=== PATIENT | female | born 1980 | race Caucasian/White ===

== ENCOUNTER 2017-06-16 17:03 | Inpatient (IN) | payer MEDICAID ==
[2014-01-23 03:10] VITALS: BMI 47.5
[2017-06-16] MEDS ORDERED: Lactated Ringer's 1,000 ML IV SCH ×2 (18:15→22:15)
[2017-06-16] MEDS ORDERED: Sodium Citrate/Citric Acid 15 ml Sol PO ONE (19:29)
[2017-06-16] MEDS ORDERED: ceFAZolin IV 2 gm in Dextrose 2 GM/100 ML BAG IVPB ONE (19:29)
[2017-06-16] MEDS ORDERED: cefOXitin IV 2 gm in Dextrose 2 GM/50 ML BAG IVPB ONE (19:33)
[2017-06-16 19:36] LABS: BASO # 0.1 K/uL (0.0-0.2); BASO % 0.6 % (0.0-2.0); EOS # 0.1 K/uL (0.0-0.7); LYMPH # 1.3 K/uL (1.0-4.3); MEAN CELL VOLUME 79.5 fL (81.0-99.0); MEAN CORPUSCULAR HEMOGLOBIN 26.5 pg (27.0-31.0); MEAN CORPUSCULAR HGB CONC 33.4 g/dL (33.0-37.0); MEAN PLATELET VOLUME 8.1 fL (7.2-11.7); MONO # 0.6 K/uL (0.0-0.8); MONO % 5.4 % (0.0-10.0); NRBC % 0.1 % (0.0-2.0); RED CELL DISTRIBUTION WIDTH 15.7 % (11.5-14.5); WHITE BLOOD COUNT 10.4 K/uL (4.8-10.8)
--- NOTE | 2017-06-16 19:40 | OBADHP ---
Datetime: 06/16/2017 18:50 Admit Comment, IP Provider: 36 y/o unknown GA states LMP 09/09/2016 with shalini 06/16/17 with ir regular period and states she felt ctx pain starting last night getting worse this morning since 8am every 3 minutes. pt reports passing mucous plug with blood this morning dneie slof, and reports jagdish l movemnets. Pt reports she knew she ws 2 months ago becuase she felt movements and denies receveing anyUS or care. Pt reports she has chronic HTN and has been on Cozaar x 1 year. pt reports last dose 3 days ago. Pt is poor historian and told nurse that she took a half tab let this morning. Pt reports hx of demise 38 weeks followed by RLTCS 7 years ago. ANte No care, poor historian OB: RLTCS x 2, IUFD 38 weeks 3years ago, and , daughter 39 weeks failure to progress PACKAGER OR PACKER AND WEIGHER: denies hx of abnormla pap (states last pap 2011), fibroids, ovairan sti PMH: Chronic HTN PSH: CxS 2 MEDS: Coazzr 100mg daily, no vitamin A/P uknown ga 2 preivous CxS chris in labor, with category II tracing, remte form deliv navya with chronic htn elevated bp r/o superimposed preccampsia -admi to L+D -npo, ivf -vs q 15 min -admission/preeclmapitc labs -US BPP/EFW -Anesthsia/OR aware -UDS jose raul Stinson M recommend delivery, continue Coozar post deliveyr adn conslting Cardiolgoy jose raul Neonatogloy Dr Fine / Dr Bernardo reports will send team if needed Pelvic Type - PN: Adequate Extremities - PN: Normal Abdomen - PN: Normal Back - PN: Normal Breast - PN: Normal Lungs - PN: Normal Heart - PN: Normal Thyroid - PN: Not Done Neurologic - PN: Normal HEENT - PN: Normal General - PN: Normal Gestation - Est Wks by US: unknown IP Hx Assessment: No Care IP Chief Complaint: Uterine contractions NICHD Variability Prov Fetus A: Minimal - Undetectable to <5bpm NICHD Decel Fetus A IP Provider: Late Dilatation, Provider: 2 Effacement, Provider: 50 Station, Provider: -3 Genitourinary Exam: Normal DTRs - PN: Normal EGA AdmitDate IP: 40.0 IP Admit Plan: Admit to unit; Initiate Section protocol
[2017-06-16 19:46] LABS: CHLORIDE 103 mmol/L (98-107); RBC URINE 17 /hpf (0-3); URINE BACTERIA OCC (<OCC); URINE BILIRUBIN NEGATIVE (NEGATIVE); URINE BLOOD 2+ (NEGATIVE); URINE COLOR Yellow (YELLOW); URINE GLUCOSE (UA) NORMAL (Normal); URINE KETONE TRACE mg/dL (NEGATIVE); URINE LEUKOCYTE ESTERASE NEG Leu/uL (Negative); URINE PROTEIN 2+ mg/dL (NEGATIVE); URINE UROBILINOGEN NORMAL mg/dL (0.2-1.0); WBC URINE 11 /hpf (0-5)
[2017-06-16 19:47] LABS: SODIUM 135 mmol/L (132-148)
[2017-06-16 19:49] LABS: ALB/GLOB RATIO 0.9 (1.0-2.1); ALKALINE PHOSPHATASE 66 U/L (38-126); ALT/SGPT 22 U/L (9-52); AST/SGOT 29 U/L (14-36); BILIRUBIN,TOTAL 1.2 mg/dL (0.2-1.3); BLOOD UREA NITROGEN 10 mg/dL (7-17); CARBON DIOXIDE 19 mmol/L (22-30); GFR AFRICAN-AMERICAN > 60; TOTAL PROTEIN 7.5 g/dL (6.3-8.3)
[2017-06-16 19:50] LABS: CALCIUM 9.5 mg/dl (8.6-10.4); GLUCOSE,RANDOM 74 mg/dL (65-105); URIC ACID 6.1 mg/dL (2.2-7.5)
[2017-06-16] MEDS ORDERED: Morphine 1 mg/ml preservative-free Inj(Duramorph) ONE (19:57)
[2017-06-16] MEDS ORDERED: cefOXitin IV 2 gm in Dextrose 2 GM/50 ML BAG IVPB SCH (20:00)
[2017-06-16] MEDS ORDERED: Oxytocin 20 units in LR 2,000 ML IV ONE (20:12)
--- NOTE | 2017-06-16 21:25 | US ---
EXAM: US After First Trimester, Transabdominal CLINICAL HISTORY: 36 years old, female; Signs and symptoms; Other: No care; ; Additional info: Wheelchair TECHNIQUE: Real-time transabdominal obstetrical ultrasound of the maternal pelvis and a second or third trimester with image documentation. COMPARISON: No priors FINDINGS: Fetus: There is a single living intrauterine gestation in cephalic presentation. There is a heart rate of 130 beats per minute. No Heart rate: Presentation: Placenta: Placenta is fundal Amniotic fluid: Amnionic fluid index measures 12.29 cm. Anatomy: Evaluation of anatomy is limited by maternal body habitus, positioning and skeletal maturation. Fluid is seen in the bladder. There is a three-vessel cord. Cord Doppler demonstrates PS/ED 2.1 BIOMETRICS Gestational age by US: 36 weeks 6 days EFW: 3200 g BPD: 8.63 cm, 34 weeks 6 days HC: 32.46 cm, 36 weeks 5 days AC: 33.96 cm, 37 weeks 6 days FL: 7.43 cm, 38 weeks 0 days IMPRESSION: 32 week 6 day single cephalic fetus, estimated date of delivery 07/08/17 EXAM: US Biophysical Profile Without Non-Stress Testing EXAM DATE/TIME: 06/16/2017 5:26 PM CLINICAL HISTORY: 36 years old, female; Signs and symptoms; Other: No care; ; Additional info: Wheelchair TECHNIQUE: Real-time ultrasound of the maternal pelvis for biophysical profile evaluation with image documentation. COMPARISON: There are no prior studies for comparison. FINDINGS: Biophysical profile: Biophysical profile was performed. Fetus was evaluated for movement, breathing, tone and fluid volume. A score of 2/2 was given for each parameter IMPRESSION: Normal 8/8 biophysical profile
[2017-06-16] MEDS ORDERED: Midazolam 2 MG/2 ML VIAL ONE (22:10)
--- NOTE | 2017-06-16 22:24 | OBDS ---
DELIVERY PERSONNEL Delivery Doctor: Adele Muro MD Victim Witness Administrator: Pam Olmstead RN Anesthesiologist: Adele Yap MD MATERNAL INFORMATION Medications in Delivery: PITOCIN Estimated Blood Loss (ml): 900 Placenta Cultured: Yes Maternal Complications: None Provider Comments: RLTCS, dense adhesions, live male apgars 9, 9 weight of 7lbs 12 ounces. unable to exteriozire uteurs due to posterior adhesions. ped iatrician present for delveyr. ebl 900 ml no complications LABOR SUMMARY EDC: 06/16/2017 00:00 No. Babies in Womb: 1 LABOR INFORMATION Group B Beta Strep: Not Done STAGES OF LABOR Stage 3 hrs: 0 Stage 3 min: 1 BABY A INFORMATION Infant Delivery Date/Time: 06/16/2017 20:55 Method of Delivery: Born in Route : No : N/A Forceps: N/A Vacuum Extraction: N/A Shoulder Dystocia : No SHOULDER DYSTOCIA BABY A Infant Delivery Date/Time: 06/16/2017 20:55 PRESENTATION/POSITION BABY A Presentation: Cephalic Cephalic Presentation: Vertex Vertex Position: Right Occipital Anterior Breech Presentation: N/A PLACENTA INFORMATION BABY A Placenta Delivery Time : 06/16/2017 20:56 Placenta Method of Delivery: Spontaneous Placenta Status: Delivered SCORES BABY A Heart Rate 1 min: >100 bpm Resp Effort 1 min: Good Cry Reflex Irritability 1 min: Cough or Sneeze or Pulls Away Muscle Tone 1 min: Active Motion Color 1 min: Body Alex, Extremities Blue Resuscitation Effort 1 min: Tactile Stimulation SCORE 1 MIN: 9 Heart Rate 5 min: >100 bpm Resp Effort 5 min: Good Cry Reflex Irritability 5 min: Cough or Sneeze or Pulls Away Muscle Tone 5 min: Active Motion Color 5 min: Body Alex, Extremities Blue Resuscitation Effort 5 min: Tactile Stimulation SCORE 5 MIN: 9 INFORMATION BABY A Gestational Age at Delivery: 40.0 Gestational Status: Term Infant Outcome : Liveborn Condition : Stable Sex: Male IDENTIFICATION/MEDS BABY A ID Band Number: [id number] ID Band Location: Left Leg; Left Arm Sensor Applied: Yes Sensor Number: [id number] Sensor Location : Cord Clamp Vitamin K Given : Aquamephyton 1 mg IM; Left Thigh Erythromycin Given: Given Both Eyes WEIGHT/LENGTH BABY A Birthweight (gms): 3515 Infant Weight (lb): 7 Infant Weight (oz): 12 Infant Length Inches: 19.50 Length cms: 49.5 CORD INFORMATION BABY A No. Cord Vessels: 3 Nuchal Cord : N/A ASSESSMENT BABY A Complications: None Physical Findings at Delivery: Within Normal Limits Respirations: Appears Normal [place] Decorator/ALS Called : Yes Care By: dr kelly Transferred To: Nursery
--- NOTE | 2017-06-16 22:30 | PCM.SURG1 ---
Surgeon's Initial Post Op Note - Surgeon's Notes Surgeon: Joyce Muro MD Supply Chain Vice President: Marciano Matthews MD Type of Anesthesia: Spinal Pre-Operative Diagnosis: Previous cesearean section, chris in labor, no care, chronic hypertensive, poor obstetrical history with previous full term iufd Operative Findings: live male apgars 9,9 weight 7lb 12 ounces, pediatrican presnet for delivery. menconium noted, chorioamnioist. Dr Matthews was surigical conference assistant and present for entire case and essential in gaining entry, retractin, expousre, holding bladder blade, gaining entry, deliveryign baby, closing all layers obtaining hemostaiss. Post-Operative Diagnosis: same as above Operation Performed: Repeat Low transverse cesearen section Specimen/Specimens Removed: placenta Estimated Blood Loss: EBL {In ML}: 900 Blood Products Given: N/A Drains Used: No Drains Post-Op Condition: Good Date of Surgery/Procedure: 06/16/17 Time of Surgery/Procedure: 08:00
[2017-06-17 07:42] LABS: HEMATOCRIT 28.3 % (34.0-47.0); MEAN CELL VOLUME 80.3 fL (81.0-99.0); MEAN CORPUSCULAR HEMOGLOBIN 26.4 pg (27.0-31.0); MEAN CORPUSCULAR HGB CONC 32.8 g/dL (33.0-37.0); MEAN PLATELET VOLUME 8.2 fL (7.2-11.7); RED CELL DISTRIBUTION WIDTH 15.4 % (11.5-14.5); WHITE BLOOD COUNT 11.4 K/uL (4.8-10.8)
[2017-06-17 08:00] LABS: CHLORIDE 103 mmol/L (98-107); POTASSIUM 4.1 mmol/L (3.6-5.2); SODIUM 132 mmol/L (132-148)
[2017-06-17 08:03] LABS: BLOOD UREA NITROGEN 9 mg/dL (7-17); CARBON DIOXIDE 21 mmol/L (22-30); GFR AFRICAN-AMERICAN > 60; GLUCOSE,RANDOM 80 mg/dL (65-105)
[2017-06-17 08:04] LABS: CALCIUM 8.7 mg/dl (8.6-10.4)
[2017-06-17] MEDS ORDERED: Measles, Mumps, and Rubella 0.5 ML VIAL SC ONE (08:14)
[2017-06-17] MEDS: Prenatal Multivit/Folic Acid/Iron Tab PO SCH (09:19)
[2017-06-17] MEDS: Simethicone 80 mg Chewtab PO SCH ×4 (09:19→21:54)
--- NOTE | 2017-06-17 10:10 | OP ---
PROCEDURE DATE: 06/16/2017 PREOPERATIVE DIAGNOSES: Previous section, chris in labor, no care, chronic hypertension, and poor obstetrical history with previous full-term intrauterine demise. POSTOPERATIVE DIAGNOSES: Previous section, chris in labor, no care, chronic hypertension, and poor obstetrical history with previous full-term intrauterine demise. PROCEDURE: Repeat low-transverse section. SURGEON: Joyce Muro MD FRONT OFFICE MEDICAL ASSISTANT: Marciano Matthews MD TYPE OF ANESTHESIA: Spinal. OPERATIVE FINDINGS: Live male infant, Apgars 9 and 9, weight of 7 pounds 12 ounces, infantry officer present for delivery, meconium noted, chorioamnionitis. Dr. Matthews was the personal assistant and was present for entire case and essential in gaining entry, retraction, exposure, holding the bladder while getting entry, delivering the baby, closing all layers and obtaining hemostasis. SPECIMEN REMOVED: Placenta. ESTIMATED BLOOD LOSS: 900 mL. BLOOD PRODUCTS: None. COMPLICATIONS: None. The patient is a 36-year-old G3, P2-0-0-1, with absolutely no care, chronic hypertensive, on Cozaar, who presented to labor and delivery complaining of contraction pain that started the night prior, but increasing in intensity and frequency since 8 a.m. this morning, however, did not present to labor and delivery until after 5 p.m. in the afternoon, also with bloody mucus-type discharge. Denies leakage of fluid. Positive movement. The patient reports contractions were increasing in intensity and severity. The patient is poorly compliant and is also a poor historian and initially told me that was taking Cozaar for the past year and then, however, states that stopped taking it for the past 3 days. The patient states that she follows with primary care, but she said that she last saw them 3 months ago. The patient states that she has known for about 2 months that she has been because she felt some movement, however, failed to get care due to personal reasons in her life. No care. OBSTETRIC HISTORY: One 7 years ago at full-term and then repeat section 3 years ago with intrauterine demise at approximately at 38 weeks as per the patient. 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 PAST MEDICAL HISTORY: Chronic hypertensive, she states, for approximately 1 year. PAST SURGICAL HISTORY: section x2. SOCIAL HISTORY: Denies alcohol, tobacco, or drugs. MEDICATIONS: Cozaar 100 mg daily. ALLERGIES: NO KNOWN DRUG ALLERGIES. Upon evaluation, the patient was noted to have 2 previous C-sections, chris in labor, and also with category II tracing remote from delivery. A bedside ultrasound was done, in which the patient was noted to be approximately 36 weeks and 6 days. The patient was counseled on risks, benefits, alternatives, and indications of repeat section, not limited to bleeding, infection, risk of injury to bowel, bladder, or other organs. The patient was also counseled on unknown risks to baby, especially due to no care and also due to use of antihypertensive medication, Cozaar, which is contraindicated in , not limited to renal agenesis. MFM and perinatologist were consulted and recommended to proceed with immediate delivery. Consent was signed and witnessed. DESCRIPTION OF PROCEDURE: The patient was taken to the operating room in the dorsal supine position. The patient was then prepped and draped in usual sterile fashion. A time-out was performed confirming correct patient and correct procedure. The patient was given preoperative prophylactic antibiotic. A Pfannenstiel skin incision was made with the scalpel and carried down to the underlying fascia with the Bovie. The fascia was incised in the midline and the incision was extended laterally with the Bovie. The inferior aspect of the fascial incision was grasped with Allis and Christina clamps and the underlying rectus muscle was dissected off with the Galaviz scissors. Attention was then turned to the superior aspect of the incision, which in a similar fashion was grasped with Allis and Christina clamps and the underlying rectus muscle dissected off bluntly using the Galaviz scissors. The rectus muscles were then carefully bluntly in the midline until a clear space of peritoneum was then noted and entered sharply. Incision was extended laterally and superiorly until there was good visualization. There were omental adhesions noted in addition to fat that were carefully lysed with good hemostasis noted. The lower end of the Wright was then inserted and a portion of the lower uterine segment away from the bladder flap was incised in a transverse fashion and the uterine incision was extended laterally with bandage scissors. Amniotic fluid membranes were then ruptured and there was meconium noted. There was fluid also staining on the umbilical cord and placenta. The surgeon's hand entered the uterine cavity and was tightly nudged into the pelvic cavity and brought up to the uterine incision. The 's head was delivered atraumatically followed by delivery of the shoulders, followed by delivery of the body. The umbilical cord was clamped and cut and the baby was handed off to the waiting infantry officer. The cord blood and cord gases were collected and sent x2. The placenta was then delivered manually and the uterus was unable to be exteriorized due to posterior adhesions. The uterus was then cleared of all clots and debris and the uterine incision was repaired in situ using 0 Vicryl running continuous locking fashion. The second layer of the same suture was used to close the uterus in a running imbricating manner. There was good hemostasis noted at the uterine incision site. The rectus was loosely reapproximated and closed with 2-0 chromic in an interrupted manner. The fascia was reapproximated and closed with 0 Vicryl in a running continuous fashion. The subcutaneous space was closed with 2-0 plain in an interrupted manner and the skin was reapproximated and closed with mini. At the end of the procedure, all needle, sponge, instrument counts were noted to be correct x2. The patient tolerated the procedure well and was transferred to the recovery room in stable condition. Joyce Muro MD [facility]AIRA
--- NOTE | 2017-06-17 10:39 | CP.PCM.CON ---
History of Present Illness - History of Present Illness History of Present Illness: Patint with history of hypertension now with C section who had high blood pressure. Now controlled and without any symptoms. Past Patient History - Past Social History Smoking Status: Never Smoked - PSYCHIATRIC Hx Substance Use: No Meds Allergies/Adverse Reactions: Allergies Allergy/AdvReac Type Severity Reaction Status Date / Time No Known Allergies Allergy Verified 01/23/14 03:10 - Medications Medications: Current Medications Bisacodyl (Dulcolax) 10 mg PO ONCE ONE Stop: 06/17/17 22:16 Docusate Sodium (Colace) 100 mg PO BID [facility] Last Admin: 06/17/17 09:19 Dose: 100 mg Ferrous Sulfate (Feosol) 325 mg PO DAILY [facility] Last Admin: 06/17/17 09:19 Dose: 325 mg Hydralazine HCl (Apresoline) 25 mg PO QID [facility] Lactated Ringer's (Lactated Ringer's) 1,000 mls @ 100 mls/hr IV .Q10H [facility] Oxytocin (Pitocin 20 Units In Lr) 1,000 mls @ 125 mls/hr IV .Q8H [facility] PRN Reason: Protocol Last Admin: 06/16/17 20:56 Dose: 125 mls/hr Ampicillin 2 gm/ Sodium (Chloride) 100 mls @ 50 mls/hr IVPB Q6H [facility] Stop: 06/17/17 18:29 Last Admin: 06/17/17 04:06 Dose: 50 mls/hr Clindamycin Phosphate 900 mg/ (Sodium Chloride) 56 mls @ 100 mls/hr IVPB Q8H [facility] Stop: 06/17/17 15:04 Last Admin: 06/17/17 09:13 Dose: 100 mls/hr Gentamicin Sulfate 80 mg/ (Sodium Chloride) 102 mls @ 100 mls/hr IVPB Q8H [facility] Stop: 06/17/17 18:02 Last Admin: 06/17/17 02:17 Dose: 100 mls/hr Ibuprofen (Motrin Tab) 600 mg PO Q4 PRN PRN Reason: Pain, Mild (1-3) Metoclopramide HCl (Reglan) 10 mg IVP ONCE PRN PRN Reason: Nausea/Vomiting, SECOND LINE Ondansetron HCl (Zofran Inj) 4 mg IVP ONCE PRN PRN Reason: Nausea/Vomiting Oxycodone/Acetaminophen (Percocet 5/325 Mg Tab) 1 tab PO Q4H PRN PRN Reason: Pain, moderate (4-7) Stop: 06/19/17 22:15 Oxycodone/Acetaminophen (Percocet 5/325 Mg Tab) 2 tab PO Q4H PRN PRN Reason: Pain, severe (8-10) Stop: 06/19/17 22:15 Multivit/Folic Acid/Iron () 1 tab PO DAILY [facility] Last Admin: 06/17/17 09:19 Dose: 1 tab Sennosides (Senokot Tab) 17.2 mg PO HS [facility] Simethicone (Mylicon Chew Tab) 80 mg PO QID [facility] Last Admin: 06/17/17 09:19 Dose: 80 mg Physical Exam - Head Exam Head Exam: NORMOCEPHALIC - Neck Exam Neck exam: Positive for: Normal Inspection Results - Vital Signs Recent Vital Signs: Last Vital Signs Temp 97.8 F 06/17/17 07:30 Pulse 75 06/17/17 07:30 Resp 18 06/17/17 07:30 BP 117/70 06/17/17 07:30 Pulse Ox 97 06/17/17 07:30 - Labs Result Diagrams: 06/17/17 07:34 06/17/17 07:34 Labs: Laboratory Results - last 24 hr 06/16/17 06/16/17 06/16/17 19:33 19:33 19:33 WBC 10.4 RBC 3.90 Hgb 10.4 L Hct 31.0 L MCV 79.5 L MCH 26.5 L MCHC 33.4 RDW 15.7 H Plt Count 219 MPV 8.1 Neut % (Auto) 81.0 H Lymph % (Auto) 12.0 L [place] % (Auto) 5.4 Eos % (Auto) 1.0 Baso % (Auto) 0.6 Neut # 8.4 H Lymph # 1.3 [place] # 0.6 Eos # 0.1 Baso # 0.1 PT INR APTT Fibrinogen Sodium 135 Potassium 5.0 Chloride 103 Carbon Dioxide 19 L Anion Gap 18 BUN 10 Creatinine 0.5 L Est GFR ( Amer) > 60 Est GFR (Non-Af Amer) > 60 Random Glucose 74 Uric Acid 6.1 Calcium 9.5 Total Bilirubin 1.2 AST 29 ALT 22 Alkaline Phosphatase 66 Lactate Dehydrogenase 715 H Total Protein 7.5 Albumin 3.6 Globulin 3.9 Albumin/Globulin Ratio 0.9 L Urine Color Urine Clarity Urine pH Ur Specific [place] Urine Protein Urine Glucose (UA) Urine Ketones Urine Blood Urine Nitrate Urine Bilirubin Urine Urobilinogen Ur Leukocyte Esterase Urine WBC (Auto) Urine RBC (Auto) Ur Squamous Epith Cells Urine Bacteria Urine Opiates Screen Urine Methadone Screen Ur Barbiturates Screen Ur Phencyclidine Scrn Ur Amphetamines Screen U Benzodiazepines Scrn U Oth Cocaine Metabols U Cannabinoids Screen Hep Bs Antigen Negative HIV 1&2 Antibody Screen Rubella IgG Antibody Equivocal Blood Type Antibody Screen BBK History Checked 06/16/17 06/16/17 06/16/17 19:33 19:33 19:33 WBC RBC Hgb Hct MCV MCH MCHC RDW Plt Count MPV Neut % (Auto) Lymph % (Auto) [place] % (Auto) Eos % (Auto) Baso % (Auto) Neut # Lymph # [place] # Eos # Baso # PT 10.8 INR 1.0 APTT 24 Fibrinogen 575 H Sodium Potassium Chloride Carbon Dioxide Anion Gap BUN Creatinine Est GFR ( Amer) Est GFR (Non-Af Amer) Random Glucose Uric Acid Calcium Total Bilirubin AST ALT Alkaline Phosphatase Lactate Dehydrogenase Total Protein Albumin Globulin Albumin/Globulin Ratio Urine Color Urine Clarity Urine pH Ur Specific [place] Urine Protein Urine Glucose (UA) Urine Ketones Urine Blood Urine Nitrate Urine Bilirubin Urine Urobilinogen Ur Leukocyte Esterase Urine WBC (Auto) Urine RBC (Auto) Ur Squamous Epith Cells Urine Bacteria Urine Opiates Screen Urine Methadone Screen Ur Barbiturates Screen Ur Phencyclidine Scrn Ur Amphetamines Screen U Benzodiazepines Scrn U Oth Cocaine Metabols U Cannabinoids Screen Hep Bs Antigen HIV 1&2 Antibody Screen Negative Rubella IgG Antibody Blood Type Cancelled Antibody Screen Negative BBK History Checked Cancelled 06/16/17 06/16/17 06/17/17 19:33 19:34 07:34 WBC 11.4 H RBC 3.53 L Hgb 9.3 L Hct 28.3 L MCV 80.3 L MCH 26.4 L MCHC 32.8 L RDW 15.4 H Plt Count 197 MPV 8.2 Neut % (Auto) Lymph % (Auto) [place] % (Auto) Eos % (Auto) Baso % (Auto) Neut # Lymph # [place] # Eos # Baso # PT INR APTT Fibrinogen Sodium Potassium Chloride Carbon Dioxide Anion Gap BUN Creatinine Est GFR ( Amer) Est GFR (Non-Af Amer) Random Glucose Uric Acid Calcium Total Bilirubin AST ALT Alkaline Phosphatase Lactate Dehydrogenase Total Protein Albumin Globulin Albumin/Globulin Ratio Urine Color Yellow Urine Clarity Clear Urine pH 6.0 Ur Specific [place] 1.019 Urine Protein 2+ H Urine Glucose (UA) Normal Urine Ketones Trace Urine Blood 2+ H Urine Nitrate Negative Urine Bilirubin Negative Urine Urobilinogen Normal Ur Leukocyte Esterase Neg Urine WBC (Auto) 11 H Urine RBC (Auto) 17 H Ur Squamous Epith Cells 3 Urine Bacteria Occ H Urine Opiates Screen Negative Urine Methadone Screen Negative Ur Barbiturates Screen Negative Ur Phencyclidine Scrn Negative Ur Amphetamines Screen Negative U Benzodiazepines Scrn Negative U Oth Cocaine Metabols Negative U Cannabinoids Screen Negative Hep Bs Antigen HIV 1&2 Antibody Screen Rubella IgG Antibody Blood Type Antibody Screen BBK History Checked 06/17/17 07:34 WBC RBC Hgb Hct MCV MCH MCHC RDW Plt Count MPV Neut % (Auto) Lymph % (Auto) [place] % (Auto) Eos % (Auto) Baso % (Auto) Neut # Lymph # [place] # Eos # Baso # PT INR APTT Fibrinogen Sodium 132 Potassium 4.1 Chloride 103 Carbon Dioxide 21 L Anion Gap 12 BUN 9 Creatinine 0.4 L Est GFR ( Amer) > 60 Est GFR (Non-Af Amer) > 60 Random Glucose 80 Uric Acid Calcium 8.7 Total Bilirubin AST ALT Alkaline Phosphatase Lactate Dehydrogenase Total Protein Albumin Globulin Albumin/Globulin Ratio Urine Color Urine Clarity Urine pH Ur Specific [place] Urine Protein Urine Glucose (UA) Urine Ketones Urine Blood Urine Nitrate Urine Bilirubin Urine Urobilinogen Ur Leukocyte Esterase Urine WBC (Auto) Urine RBC (Auto) Ur Squamous Epith Cells Urine Bacteria Urine Opiates Screen Urine Methadone Screen Ur Barbiturates Screen Ur Phencyclidine Scrn Ur Amphetamines Screen U Benzodiazepines Scrn U Oth Cocaine Metabols U Cannabinoids Screen Hep Bs Antigen HIV 1&2 Antibody Screen Rubella IgG Antibody Blood Type Antibody Screen BBK History Checked Assessment & Plan (1) Hypertension Assessment and Plan: History of hypertension, now controlled. Control pain. Continue current medicine. Status: Acute
--- NOTE | 2017-06-17 13:50 | CP.PCM.CON ---
<Sun Cabrera Dianna - Last Filed: 06/17/17 14:02> History of Present Illness - History of Present Illness History of Present Illness: PGY1- Medicine Note- Dr. Ahumada's service Patient is a 34 year old female with a PMHx of HTN who is s/p delivery, post-op day 1. Medicine was consulted to evaluate the patient's hypertension. Her blood pressure is currently being managed with losartan 100 mg daily. She does not regularly monitor her blood pressure at home, but notes that she gets headaches when it goes too high. Patient did not receive any care as she was unaware that she was for the first 7 months of her . Her menstrual cycle is irregular at baseline so she was not concerned about missing her periods. Patient continued to take losartan until she realized she was at 7 months and afterwards took 50 mg prn whenever she experienced headaches. Today patient complains of mild cough and congestion for the past 2-3 days as well as orthopnea during her . Post patient is having some sweating and rates her abdominal pain as 6/10. Patient has had no bowel movement or flatulence since her . Patient denies fever, chills, n/v/d/c, dizziness, headaches, changes in vision or speech, confusion, or chest pain. PMHx: HTN; Herniated disk; spinal stenosis; arthritis; asthma PSHx: x 3 FHx: Maternal: HTN, DM, CKD; Paternal: Thyroid; Siblings: most are diabetic SH: Patient denies tobacco, alcohol, or illicit drug use Medications: Cozaar - 100 mg daily; Naproxen - 500 mg HS; Flexeril - 10 mg HS; Percocet 5-325 mg PRN Allergies: NKDA Review of Systems - Constitutional Constitutional: Weakness. absent: Chills, Fever - EENT Eyes: absent: Change in Vision, Diplopia Ears: absent: Decreased Hearing, Abnormal Hearing, Dizziness Nose/Mouth/Throat: Nasal Congestion. absent: Sore Throat - Cardiovascular Cardiovascular: Orthopnea. absent: Chest Pain, Leg Edema, Lightheadedness, Pedal Edema - Respiratory Respiratory: Cough. absent: Hemoptysis, Wheezing, Stridor - Gastrointestinal Gastrointestinal: Abdominal Pain, Constipation - Genitourinary Genitourinary: absent: Change in Urinary Stream, Difficulty Urinating, Dysuria - Menstruation Menstruation: Cycle Variable - Musculoskeletal Musculoskeletal: absent: Muscle Weakness - Integumentary Integumentary: absent: Change in Pigmentation, Changing Lesions, New Lesions, Pruritus, Rash - Neurological Neurological: Weakness. absent: Dizziness, Numbness, Tingling - Hematologic/Lymphatic Hematologic: absent: Easy Bleeding, Easy Bruising Past Patient History - Past Social History Smoking Status: Never Smoked - PSYCHIATRIC Hx Substance Use: No Meds Allergies/Adverse Reactions: Allergies Allergy/AdvReac Type Severity Reaction Status Date / Time No Known Allergies Allergy Verified 01/23/14 03:10 - Medications Medications: Current Medications Bisacodyl (Dulcolax) 10 mg PO ONCE ONE Stop: 06/17/17 22:16 Docusate Sodium (Colace) 100 mg PO BID [facility] Last Admin: 06/17/17 09:19 Dose: 100 mg Ferrous Sulfate (Feosol) 325 mg PO BID [facility] Hydralazine HCl (Apresoline) 25 mg PO QID [facility] Last Admin: 06/17/17 10:30 Dose: Not Given Lactated Ringer's (Lactated Ringer's) 1,000 mls @ 100 mls/hr IV .Q10H [facility] Oxytocin (Pitocin 20 Units In Lr) 1,000 mls @ 125 mls/hr IV .Q8H [facility] PRN Reason: Protocol Last Admin: 06/16/17 20:56 Dose: 125 mls/hr Ampicillin 2 gm/ Sodium (Chloride) 100 mls @ 50 mls/hr IVPB Q6H [facility] Stop: 06/17/17 18:29 Last Admin: 06/17/17 11:25 Dose: 50 mls/hr Clindamycin Phosphate 900 mg/ (Sodium Chloride) 56 mls @ 100 mls/hr IVPB Q8H [facility] Stop: 06/17/17 15:04 Last Admin: 06/17/17 09:13 Dose: 100 mls/hr Gentamicin Sulfate 80 mg/ (Sodium Chloride) 102 mls @ 100 mls/hr IVPB Q8H [facility] Stop: 06/17/17 18:02 Last Admin: 06/17/17 02:17 Dose: 100 mls/hr Ibuprofen (Motrin Tab) 600 mg PO Q4 PRN PRN Reason: Pain, Mild (1-3) Metoclopramide HCl (Reglan) 10 mg IVP ONCE PRN PRN Reason: Nausea/Vomiting, SECOND LINE Ondansetron HCl (Zofran Inj) 4 mg IVP ONCE PRN PRN Reason: Nausea/Vomiting Oxycodone/Acetaminophen (Percocet 5/325 Mg Tab) 1 tab PO Q4H PRN PRN Reason: Pain, moderate (4-7) Stop: 06/19/17 22:15 Oxycodone/Acetaminophen (Percocet 5/325 Mg Tab) 2 tab PO Q4H PRN PRN Reason: Pain, severe (8-10) Stop: 06/19/17 22:15 Multivit/Folic Acid/Iron () 1 tab PO DAILY [facility] Last Admin: 06/17/17 09:19 Dose: 1 tab Sennosides (Senokot Tab) 17.2 mg PO HS YANY Simethicone (Mylicon Chew Tab) 80 mg PO QID [facility] Last Admin: 06/17/17 09:19 Dose: 80 mg Tetanus/Reduced Diphtheria/Acell Pertussis (Adacel) 0.5 ml IM .ONCE ONE Stop: 06/18/17 10:01 Physical Exam - Constitutional Appears: Well, Non-toxic, No Acute Distress - Head Exam Head Exam: ATRAUMATIC, NORMAL INSPECTION, NORMOCEPHALIC - Eye Exam Eye Exam: EOMI, Normal appearance, PERRL - ENT Exam ENT Exam: Mucous Membranes Moist, Normal Exam - Neck Exam Neck exam: Positive for: Normal Inspection - Respiratory Exam Respiratory Exam: Clear to Auscultation Bilateral, NORMAL BREATHING PATTERN. absent: Rales, Rhonchi, Wheezes, Respiratory Distress - Cardiovascular Exam Cardiovascular Exam: REGULAR RHYTHM, RRR. absent: Gallop, Rubs, Systolic Murmur - GI/Abdominal Exam GI & Abdominal Exam: Normal Bowel Sounds, Soft, Tenderness Additional comments: c section incision dry, clean, intact - Extremities Exam Extremities exam: Positive for: normal inspection. Negative for: calf tenderness, pedal edema - Neurological Exam Neurological exam: Alert, Oriented x3 - Psychiatric Exam Psychiatric exam: Normal Affect, Normal Mood - Skin Skin Exam: Dry, Intact, Normal Color Additional comments: c section incision clean, dry, intact Results - Vital Signs Recent Vital Signs: Last Vital Signs Temp 97.8 F 06/17/17 07:30 Pulse 75 06/17/17 07:30 Resp 18 06/17/17 07:30 BP 117/70 06/17/17 07:30 Pulse Ox 97 06/17/17 07:30 - Labs Result Diagrams: 06/17/17 07:34 06/17/17 07:34 Labs: Laboratory Results - last 24 hr 06/16/17 06/16/17 06/16/17 19:33 19:33 19:33 WBC 10.4 RBC 3.90 Hgb 10.4 L Hct 31.0 L MCV 79.5 L MCH 26.5 L MCHC 33.4 RDW 15.7 H Plt Count 219 MPV 8.1 Neut % (Auto) 81.0 H Lymph % (Auto) 12.0 L Vernon % (Auto) 5.4 Eos % (Auto) 1.0 Baso % (Auto) 0.6 Neut # 8.4 H Lymph # 1.3 Vernon # 0.6 Eos # 0.1 Baso # 0.1 PT INR APTT Fibrinogen Sodium 135 Potassium 5.0 Chloride 103 Carbon Dioxide 19 L Anion Gap 18 BUN 10 Creatinine 0.5 L Est GFR ( Amer) > 60 Est GFR (Non-Af Amer) > 60 Random Glucose 74 Uric Acid 6.1 Calcium 9.5 Total Bilirubin 1.2 AST 29 ALT 22 Alkaline Phosphatase 66 Lactate Dehydrogenase 715 H Total Protein 7.5 Albumin 3.6 Globulin 3.9 Albumin/Globulin Ratio 0.9 L Urine Color Urine Clarity Urine pH Ur Specific Zaleski Urine Protein Urine Glucose (UA) Urine Ketones Urine Blood Urine Nitrate Urine Bilirubin Urine Urobilinogen Ur Leukocyte Esterase Urine WBC (Auto) Urine RBC (Auto) Ur Squamous Epith Cells Urine Bacteria Urine Opiates Screen Urine Methadone Screen Ur Barbiturates Screen Ur Phencyclidine Scrn Ur Amphetamines Screen U Benzodiazepines Scrn U Oth Cocaine Metabols U Cannabinoids Screen Hep Bs Antigen Negative HIV 1&2 Antibody Screen Rubella IgG Antibody Equivocal Blood Type Antibody Screen BBK History Checked 06/16/17 06/16/17 06/16/17 19:33 19:33 19:33 WBC RBC Hgb Hct MCV MCH MCHC RDW Plt Count MPV Neut % (Auto) Lymph % (Auto) Vernon % (Auto) Eos % (Auto) Baso % (Auto) Neut # Lymph # Vernon # Eos # Baso # PT 10.8 INR 1.0 APTT 24 Fibrinogen 575 H Sodium Potassium Chloride Carbon Dioxide Anion Gap BUN Creatinine Est GFR ( Amer) Est GFR (Non-Af Amer) Random Glucose Uric Acid Calcium Total Bilirubin AST ALT Alkaline Phosphatase Lactate Dehydrogenase Total Protein Albumin Globulin Albumin/Globulin Ratio Urine Color Urine Clarity Urine pH Ur Specific Zaleski Urine Protein Urine Glucose (UA) Urine Ketones Urine Blood Urine Nitrate Urine Bilirubin Urine Urobilinogen Ur Leukocyte Esterase Urine WBC (Auto) Urine RBC (Auto) Ur Squamous Epith Cells Urine Bacteria Urine Opiates Screen Urine Methadone Screen Ur Barbiturates Screen Ur Phencyclidine Scrn Ur Amphetamines Screen U Benzodiazepines Scrn U Oth Cocaine Metabols U Cannabinoids Screen Hep Bs Antigen HIV 1&2 Antibody Screen Negative Rubella IgG Antibody Blood Type Cancelled Antibody Screen Negative BBK History Checked Cancelled 06/16/17 06/16/17 06/17/17 19:33 19:34 07:34 WBC 11.4 H RBC 3.53 L Hgb 9.3 L Hct 28.3 L MCV 80.3 L MCH 26.4 L MCHC 32.8 L RDW 15.4 H Plt Count 197 MPV 8.2 Neut % (Auto) Lymph % (Auto) Vernon % (Auto) Eos % (Auto) Baso % (Auto) Neut # Lymph # Vernon # Eos # Baso # PT INR APTT Fibrinogen Sodium Potassium Chloride Carbon Dioxide Anion Gap BUN Creatinine Est GFR ( Amer) Est GFR (Non-Af Amer) Random Glucose Uric Acid Calcium Total Bilirubin AST ALT Alkaline Phosphatase Lactate Dehydrogenase Total Protein Albumin Globulin Albumin/Globulin Ratio Urine Color Yellow Urine Clarity Clear Urine pH 6.0 Ur Specific Zaleski 1.019 Urine Protein 2+ H Urine Glucose (UA) Normal Urine Ketones Trace Urine Blood 2+ H Urine Nitrate Negative Urine Bilirubin Negative Urine Urobilinogen Normal Ur Leukocyte Esterase Neg Urine WBC (Auto) 11 H Urine RBC (Auto) 17 H Ur Squamous Epith Cells 3 Urine Bacteria Occ H Urine Opiates Screen Negative Urine Methadone Screen Negative Ur Barbiturates Screen Negative Ur Phencyclidine Scrn Negative Ur Amphetamines Screen Negative U Benzodiazepines Scrn Negative U Oth Cocaine Metabols Negative U Cannabinoids Screen Negative Hep Bs Antigen HIV 1&2 Antibody Screen Rubella IgG Antibody Blood Type Antibody Screen BBK History Checked 06/17/17 06/17/17 07:34 10:45 WBC RBC Hgb Hct MCV MCH MCHC RDW Plt Count MPV Neut % (Auto) Lymph % (Auto) Vernon % (Auto) Eos % (Auto) Baso % (Auto) Neut # Lymph # Vernon # Eos # Baso # PT INR APTT Fibrinogen Sodium 132 Potassium 4.1 Chloride 103 Carbon Dioxide 21 L Anion Gap 12 BUN 9 Creatinine 0.4 L Est GFR ( Amer) > 60 Est GFR (Non-Af Amer) > 60 Random Glucose 80 Uric Acid Calcium 8.7 Total Bilirubin AST ALT Alkaline Phosphatase Lactate Dehydrogenase Total Protein Albumin Globulin Albumin/Globulin Ratio Urine Color Urine Clarity Urine pH Ur Specific Zaleski Urine Protein Urine Glucose (UA) Urine Ketones Urine Blood Urine Nitrate Urine Bilirubin Urine Urobilinogen Ur Leukocyte Esterase Urine WBC (Auto) Urine RBC (Auto) Ur Squamous Epith Cells Urine Bacteria Urine Opiates Screen Urine Methadone Screen Ur Barbiturates Screen Ur Phencyclidine Scrn Ur Amphetamines Screen U Benzodiazepines Scrn U Oth Cocaine Metabols U Cannabinoids Screen Hep Bs Antigen HIV 1&2 Antibody Screen Rubella IgG Antibody Blood Type A NEGATIVE Antibody Screen Negative BBK History Checked Assessment & Plan - Assessment and Plan (Free Text) Assessment: Hypertension Cozaar stopped Hydralazine 25 mg PO QID, hold SBP<100, hold if HR<60 Monitor blood pressure s/p 06/16 management as per OBGYN <Constance Ahumada V - Last Filed: 06/17/17 22:54> Meds - Medications Medications: Current Medications Docusate Sodium (Colace) 100 mg PO BID [facility] Last Admin: 06/17/17 18:26 Dose: 100 mg Ferrous Sulfate (Feosol) 325 mg PO BID [facility] Last Admin: 06/17/17 18:27 Dose: 325 mg Hydralazine HCl (Apresoline) 25 mg PO QID [facility] Last Admin: 06/17/17 21:54 Dose: 25 mg Lactated Ringer's (Lactated Ringer's) 1,000 mls @ 100 mls/hr IV .Q10H [facility] Oxytocin (Pitocin 20 Units In Lr) 1,000 mls @ 125 mls/hr IV .Q8H [facility] PRN Reason: Protocol Last Admin: 06/16/17 20:56 Dose: 125 mls/hr Ibuprofen (Motrin Tab) 600 mg PO Q4 PRN PRN Reason: Pain, Mild (1-3) Metoclopramide HCl (Reglan) 10 mg IVP ONCE PRN PRN Reason: Nausea/Vomiting, SECOND LINE Ondansetron HCl (Zofran Inj) 4 mg IVP ONCE PRN PRN Reason: Nausea/Vomiting Oxycodone/Acetaminophen (Percocet 5/325 Mg Tab) 1 tab PO Q4H PRN PRN Reason: Pain, moderate (4-7) Stop: 06/19/17 22:15 Last Admin: 06/17/17 21:56 Dose: 1 tab Oxycodone/Acetaminophen (Percocet 5/325 Mg Tab) 2 tab PO Q4H PRN PRN Reason: Pain, severe (8-10) Stop: 06/19/17 22:15 Multivit/Folic Acid/Iron () 1 tab PO DAILY [facility] Last Admin: 06/17/17 09:19 Dose: 1 tab Sennosides (Senokot Tab) 17.2 mg PO HS [facility] Last Admin: 06/17/17 21:53 Dose: 17.2 mg Simethicone (Mylicon Chew Tab) 80 mg PO QID [facility] Last Admin: 06/17/17 21:54 Dose: 80 mg Tetanus/Reduced Diphtheria/Acell Pertussis (Adacel) 0.5 ml IM .ONCE ONE Stop: 06/18/17 10:01 Results - Vital Signs Recent Vital Signs: Last Vital Signs Temp 97.9 F 06/17/17 15:30 Pulse 83 06/17/17 18:35 Resp 20 06/17/17 18:30 BP 134/75 06/17/17 18:30 Pulse Ox 98 06/17/17 18:30 - Labs Result Diagrams: 06/17/17 07:34 06/17/17 07:34 Labs: Laboratory Results - last 24 hr 06/17/17 06/17/17 06/17/17 07:34 07:34 10:45 WBC 11.4 H RBC 3.53 L Hgb 9.3 L Hct 28.3 L MCV 80.3 L MCH 26.4 L MCHC 32.8 L RDW 15.4 H Plt Count 197 MPV 8.2 Sodium 132 Potassium 4.1 Chloride 103 Carbon Dioxide 21 L Anion Gap 12 BUN 9 Creatinine 0.4 L Est GFR ( Amer) > 60 Est GFR (Non-Af Amer) > 60 Random Glucose 80 Calcium 8.7 Blood Type A NEGATIVE Antibody Screen Negative Attending/Attestation - Attestation I have personally seen and examined this patient.: Yes I have fully participated in the care of the patient.: Yes I have reviewed all pertinent clinical information: Yes Notes (Text): Patient seen, examined, and case discussed with day-time resident. Medicine was consulted for blood pressure management with patient with history of chronic hypertension; s/p , who did not receive care during time of . Patient reports she visited PMD about 8 months ago and her Cozaar dose was increased. Patient reports two year history of blood pressure and family hx of hypertension. Patient discovered two months ago she was , decided to stop Cozaar on her own, and only take which felt her blood pressure was high, and did not informed of PMD at the time of nor seek [facility] [employer]OR care. Patient advised at bedside to stop Cozaar given she has plans to breastfed. I advised the patient that Cozaar may have adverse side effects given she was taking this medication during unplanned and further side effects considering she is planning to breast fed. Information verified with Aid via [facility]. Discussed with Dr. Benítez following my visit with the patient this morning; discontinued Cozaar and started on Hydralazine 25mg PO QID with holding parameters Assessment/Plan 1) Chronic Hypertension * Cozaar stopped given side effect profile during ; Patient is status post delivery with plans for and advised to stop medication if she is planning to breast fed given adverse implications to the ; patient agreeable to this plan * Hydralazine 25 mg PO QID, hold SBP<100, hold if HR<60 * Monitor blood pressure 2) s/p 06/16 * management as per OBGYN
[2017-06-17] MEDS: Oxycodone/Acetaminophen 5/325 mg Tab PO PRN ×2 (17:33→21:56)
[2017-06-17 18:40] VITALS: O2SAT 98
--- NOTE | 2017-06-17 21:29 | OBPPN ---
Datetime: 06/17/2017 15:05 PP Pain Prov: Within normal limits PP Nausea Prov: Denies PP Flatus Prov: No PP BM Prov: No PP Breasts Prov: Normal PP Heart Prov: Normal PP Lungs Prov: Normal PP Abdomen/Uterus Prov: Normal PP Lochia Prov: Normal PP Vulva/Perineum Prov: Not Done PP CVA Tenderness Prov: Normal PP Extremities Prov: Normal PP C/S Incision Prov: Normal PP Progress Prov: Normal PP Comments Phys Exam Prov: Abdomen: (+)ABS. Obese. Soft. Non distended. Fundus firm, mobile, approp riately and mildly tender. Incision with mini - clean, dry and itact. Moderate lochia rubra. Extremities: bilatral lower extremity edema; no calf tenderness All other systems reviewed and are negative PP Progress Note Prov: Patient initially seen and evaluated approximately 1300 hours: received in ch air; FOB and others in the room - asked to leave. Motivated to breastfeed. Was nauseous earlier this morning; not so at time of evaluatoin. Not yet voided after Chávez removed. Pain scale 6/10 - relie venice with pain meds. P.E.: as above. Obese, in NAD. Awake, alert, oriented to time, person and place. Pleasant and co operative - POD#1 H/H 9.3/28.3. Rh(-) - receiveing Rhogam Assessment: POD#1 36 y.o. P3012, S/P C/S #3 at term; no care. Chronic HTN was on cozaar. Patient has been evaluated by Medicine for management of HTN - Thank you Dr. Ahumada. Also seen by C ardiologist; S/P ECHO - results pending. Anemia noted - asymptomatic; hemodynamically stable. Clini manan stable. Plan: 1) continue present post op management 2) Encourage ambulation in hallway 3) Change iron to BID 4) continue hydralzaine 25 mg p.o. QID Approximately 1715 hours, notified by R.N - patient c/o cough and wheezing - Patient received in bed in NAD. Talking witout difficulty. Reports H/O asthma, 2009 - never hos pitalized or intubated. Not on any meds. Patient stated has voided twice since last encounter. Lungs: CTA bilaterally; no wheezes auscultated - pulmonary toilette performed. Patient coughed a little and felt better Assessment: Post op cough - probable, mild atelectasis. Afebrile, VSS. Plan: 1) Encourage incentive spirometer q hour 2) Encourage ambulating 3) Continue post op care 4) F/U Cardiology and Medicine consults 5) Robitussin 10 mL p.o. Q4H, PRN Vital Signs Provider PP: Reviewed
[2017-06-17] MEDS ORDERED: Bisacodyl 5mg EC Tab PO ONE (22:15)
[2017-06-18] MEDS: Oxycodone/Acetaminophen 5/325 mg Tab PO PRN ×2 (03:20→23:38)
--- NOTE | 2017-06-18 09:17 | CP.PCM.PN ---
<Mami Byrnes - Last Filed: 06/18/17 21:08> Subjective - Date & Time of Evaluation Date of Evaluation: 06/18/17 Time of Evaluation: : - Subjective Subjective: Patient seen and examined at bedside. Patient resting comfortably in bed with at side. Patient is feeling well today other than some appropriate post op lower abdominal tenderness. Patient not having BMs or passing flatus since surgery. Patient says she is urinating appropriately. Patient says she no longer has the cough and is using incentive spirometer. Patient denies HANNAH, dizziness, changes in vision, ringing in ears, CP, SOB, N, V. Objective - Vital Signs/Intake and Output Vital Signs (last 24 hours): Temp Pulse Resp BP Pulse Ox 99.5 F 90 20 148/86 98 06/18/17 00:00 06/18/17 00:00 06/18/17 00:00 06/18/17 00:00 06/18/17 00:00 - Medications Medications: Current Medications Docusate Sodium (Colace) 100 mg PO BID [facility] Last Admin: 06/17/17 18:26 Dose: 100 mg Ferrous Sulfate (Feosol) 325 mg PO BID [facility] Last Admin: 06/17/17 18:27 Dose: 325 mg Hydralazine HCl (Apresoline) 25 mg PO QID [facility] Last Admin: 06/17/17 21:54 Dose: 25 mg Lactated Ringer's (Lactated Ringer's) 1,000 mls @ 100 mls/hr IV .Q10H [facility] Oxytocin (Pitocin 20 Units In Lr) 1,000 mls @ 125 mls/hr IV .Q8H [facility] PRN Reason: Protocol Last Admin: 06/16/17 20:56 Dose: 125 mls/hr Ibuprofen (Motrin Tab) 600 mg PO Q4 PRN PRN Reason: Pain, Mild (1-3) Metoclopramide HCl (Reglan) 10 mg IVP ONCE PRN PRN Reason: Nausea/Vomiting, SECOND LINE Ondansetron HCl (Zofran Inj) 4 mg IVP ONCE PRN PRN Reason: Nausea/Vomiting Oxycodone/Acetaminophen (Percocet 5/325 Mg Tab) 1 tab PO Q4H PRN PRN Reason: Pain, moderate (4-7) Stop: 06/19/17 22:15 Last Admin: 06/17/17 21:56 Dose: 1 tab Oxycodone/Acetaminophen (Percocet 5/325 Mg Tab) 2 tab PO Q4H PRN PRN Reason: Pain, severe (8-10) Stop: 06/19/17 22:15 Last Admin: 06/18/17 03:20 Dose: 2 tab Multivit/Folic Acid/Iron () 1 tab PO DAILY [facility] Last Admin: 06/17/17 09:19 Dose: 1 tab Sennosides (Senokot Tab) 17.2 mg PO HS [facility] Last Admin: 06/17/17 21:53 Dose: 17.2 mg Simethicone (Mylicon Chew Tab) 80 mg PO QID [facility] Last Admin: 06/17/17 21:54 Dose: 80 mg Tetanus/Reduced Diphtheria/Acell Pertussis (Adacel) 0.5 ml IM .ONCE ONE Stop: 06/18/17 10:01 - Labs Labs: 06/17/17 07:34 06/17/17 07:34 PT 10.8 SECONDS (9.7-12.2) 06/16/17 19:33 INR 1.0 06/16/17 19:33 APTT 24 SECONDS (21-34) 06/16/17 19:33 - Constitutional Appears: Non-toxic, No Acute Distress - Head Exam Head Exam: NORMAL INSPECTION - Eye Exam Eye Exam: EOMI - ENT Exam ENT Exam: Mucous Membranes Moist - Respiratory Exam Respiratory Exam: Clear to Ausculation Bilateral, NORMAL BREATHING PATTERN. absent: Wheezes, Respiratory Distress - Cardiovascular Exam Cardiovascular Exam: REGULAR RHYTHM, +S1, +S2. absent: Bradycardia - GI/Abdominal Exam GI & Abdominal Exam: Soft, Tenderness (appropriate post op tenderness ), Hypoactive Bowel Sounds. absent: Distended - Extremities Exam Extremities Exam: Normal Inspection - Neurological Exam Neurological Exam: Alert, Awake, Oriented x3 - Psychiatric Exam Psychiatric exam: Normal Affect, Normal Mood - Skin Skin Exam: Dry, Intact, Warm Assessment and Plan - Assessment and Plan (Free Text) Assessment: Chronic Hypertension * Cozaar stopped given side effect profile during ; Patient is status post delivery with plans for and advised to stop medication if she is planning to breast fed given adverse implications to the ; patient agreeable to this plan * Hydralazine 25 mg PO QID changed to 50 mg PO TID for better control of BP; hold SBP<100, hold if HR<60 * Monitor blood pressure s/p 06/16 * management as per OBGYN Post op ileus * Ducolax suppository ordered; monitor for BM and flatus <Constance Ahumada V - Last Filed: 06/19/17 02:29> Objective - Vital Signs/Intake and Output Vital Signs (last 24 hours): Temp Pulse Resp BP Pulse Ox 98.9 F 100 H 20 138/76 98 06/19/17 00:00 06/19/17 00:00 06/19/17 00:00 06/19/17 00:00 06/18/17 14:49 - Medications Medications: Current Medications Docusate Sodium (Colace) 100 mg PO BID [facility] Last Admin: 06/18/17 17:51 Dose: 100 mg Ferrous Sulfate (Feosol) 325 mg PO BID [facility] Last Admin: 06/18/17 17:52 Dose: 325 mg Hydralazine HCl (Apresoline) 50 mg PO TID [facility] Last Admin: 06/18/17 17:51 Dose: 50 mg Lactated Ringer's (Lactated Ringer's) 1,000 mls @ 100 mls/hr IV .Q10H [facility] Oxytocin (Pitocin 20 Units In Lr) 1,000 mls @ 125 mls/hr IV .Q8H [facility] PRN Reason: Protocol Last Admin: 06/16/17 20:56 Dose: 125 mls/hr Ibuprofen (Motrin Tab) 600 mg PO Q4 PRN PRN Reason: Pain, Mild (1-3) Metoclopramide HCl (Reglan) 10 mg IVP ONCE PRN PRN Reason: Nausea/Vomiting, SECOND LINE Ondansetron HCl (Zofran Inj) 4 mg IVP ONCE PRN PRN Reason: Nausea/Vomiting Oxycodone/Acetaminophen (Percocet 5/325 Mg Tab) 1 tab PO Q4H PRN PRN Reason: Pain, moderate (4-7) Stop: 06/19/17 22:15 Last Admin: 06/17/17 21:56 Dose: 1 tab Oxycodone/Acetaminophen (Percocet 5/325 Mg Tab) 2 tab PO Q4H PRN PRN Reason: Pain, severe (8-10) Stop: 06/19/17 22:15 Last Admin: 06/18/17 23:38 Dose: 2 tab Multivit/Folic Acid/Iron () 1 tab PO DAILY [facility] Last Admin: 06/18/17 10:59 Dose: 1 tab Sennosides (Senokot Tab) 17.2 mg PO HS [facility] Last Admin: 06/18/17 21:39 Dose: 17.2 mg Simethicone (Mylicon Chew Tab) 80 mg PO QID [facility] Last Admin: 06/18/17 21:39 Dose: 80 mg - Labs Labs: 06/17/17 07:34 06/17/17 07:34 PT 10.8 SECONDS (9.7-12.2) 06/16/17 19:33 INR 1.0 06/16/17 19:33 APTT 24 SECONDS (21-34) 06/16/17 19:33 Attending/Attestation - Attestation I have personally seen and examined this patient.: Yes I have fully participated in the care of the patient.: Yes I have reviewed all pertinent clinical information, including history, physical exam and plan: Yes Notes (Text): This is late computer entry for 06/18/17. Patient seen, examined, and case discussed with day-time resident. Medicine was consulted for blood pressure management with patient with history of chronic hypertension; s/p , who did not receive care during time of . Patient's blood pressure changed to Hydralazine 50mg PO TID for blood pressure control given Hydralazine was started yesterday for 4x a day and issue of taking medication multiple times; patient prior Cozaar once a day prior to . Patient is aware she will need to follow-up with her primary care doctor when she is ready to be discharge and advocated for low salt diet. Discussed with patient's nurse during day-time, patient report she had not had a bowel movement nor flatus, patient is on stool softeners, and ordered for ducolax per primary/OBGYN management as an aside. Assessment/Plan 1) Chronic Hypertension * Cozaar stopped given side effect profile during ; Patient is status post delivery with plans for and advised to stop medication if she is planning to breast fed given adverse implications to the ; patient agreeable to this plan * Hydralazine 50 mg PO TID with holding parameters * Monitor blood pressure 2) s/p 06/16 * management as per OBGYN/primary
--- NOTE | 2017-06-18 09:41 | CP.PCM.PN ---
Subjective - Date & Time of Evaluation Date of Evaluation: 06/18/17 Time of Evaluation: 09:30 - Subjective Subjective: No chest pain or shortness of breath. Objective - Vital Signs/Intake and Output Vital Signs (last 24 hours): Temp Pulse Resp BP Pulse Ox 99.5 F 90 20 148/86 98 06/18/17 00:00 06/18/17 00:00 06/18/17 00:00 06/18/17 00:00 06/18/17 00:00 - Medications Medications: Current Medications Docusate Sodium (Colace) 100 mg PO BID [facility] Last Admin: 06/17/17 18:26 Dose: 100 mg Ferrous Sulfate (Feosol) 325 mg PO BID [facility] Last Admin: 06/17/17 18:27 Dose: 325 mg Hydralazine HCl (Apresoline) 25 mg PO QID [facility] Last Admin: 06/17/17 21:54 Dose: 25 mg Lactated Ringer's (Lactated Ringer's) 1,000 mls @ 100 mls/hr IV .Q10H [facility] Oxytocin (Pitocin 20 Units In Lr) 1,000 mls @ 125 mls/hr IV .Q8H [facility] PRN Reason: Protocol Last Admin: 06/16/17 20:56 Dose: 125 mls/hr Ibuprofen (Motrin Tab) 600 mg PO Q4 PRN PRN Reason: Pain, Mild (1-3) Metoclopramide HCl (Reglan) 10 mg IVP ONCE PRN PRN Reason: Nausea/Vomiting, SECOND LINE Ondansetron HCl (Zofran Inj) 4 mg IVP ONCE PRN PRN Reason: Nausea/Vomiting Oxycodone/Acetaminophen (Percocet 5/325 Mg Tab) 1 tab PO Q4H PRN PRN Reason: Pain, moderate (4-7) Stop: 06/19/17 22:15 Last Admin: 06/17/17 21:56 Dose: 1 tab Oxycodone/Acetaminophen (Percocet 5/325 Mg Tab) 2 tab PO Q4H PRN PRN Reason: Pain, severe (8-10) Stop: 06/19/17 22:15 Last Admin: 06/18/17 03:20 Dose: 2 tab Multivit/Folic Acid/Iron () 1 tab PO DAILY [facility] Last Admin: 06/17/17 09:19 Dose: 1 tab Sennosides (Senokot Tab) 17.2 mg PO HS [facility] Last Admin: 06/17/17 21:53 Dose: 17.2 mg Simethicone (Mylicon Chew Tab) 80 mg PO QID [facility] Last Admin: 06/17/17 21:54 Dose: 80 mg Tetanus/Reduced Diphtheria/Acell Pertussis (Adacel) 0.5 ml IM .ONCE ONE Stop: 06/18/17 10:01 - Labs Labs: 06/17/17 07:34 06/17/17 07:34 PT 10.8 SECONDS (9.7-12.2) 06/16/17 19:33 INR 1.0 06/16/17 19:33 APTT 24 SECONDS (21-34) 06/16/17 19:33 - Head Exam Head Exam: NORMOCEPHALIC - Neck Exam Neck Exam: Normal Inspection - Respiratory Exam Respiratory Exam: NORMAL BREATHING PATTERN - Cardiovascular Exam Cardiovascular Exam: REGULAR RHYTHM - Extremities Exam Extremities Exam: Normal Inspection - Neurological Exam Neurological Exam: Alert, Oriented x3 Assessment and Plan (1) Hypertension Assessment & Plan: BP well controlled. Needs, medicine and follow-up compliance. Discussed with staff and patient. Status: Acute
[2017-06-18] MEDS: Simethicone 80 mg Chewtab PO SCH ×4 (10:58→21:39)
[2017-06-18] MEDS: Prenatal Multivit/Folic Acid/Iron Tab PO SCH (10:59)
--- NOTE | 2017-06-18 15:44 | OBPPN ---
Datetime: 06/18/2017 08:55 PP Pain Prov: Within normal limits PP Nausea Prov: Denies PP Flatus Prov: No PP BM Prov: No PP Impression Prov: Normal progression PP Plan Prov: Continue present management PP Progress Note Prov: Patient seen and examined at bedside. Per nursing, no acute events overnight. Patient is doing well, pain is controlled. Patient is ambulating and tolerating diet. Lochia is mild . Urinating without difficulty. Denies passing flatus or having a BM. Breast and Bottle feeding. Coleman es headaches, dizziness, fevers, chills, chest pain, palpitations, shortness of breath, urinary sympt oms. VS: BP 139/88 HR 90 Temp 98.9 Gen: AAOx3, NAD CV: RRR Lungs: CTA B/L Abdomen: Soft, obese, fundus firm, appropriately tender, incision c/d/i Ext: Bilateral pedal edema; no calf tenderness Labs: 10.4>10.4/31.0<219 11.4>9.3/28.3<197 A negative Rubella Equivocal A/P: 36 yo at 40w0d s/p RLTCD POD#2 1. Stable, afebrile 2. Pain control percocet and motrin prn 3. Encourage ambulation and hydration/ encourage ISS use 4. Rubella equivocal: will recieve MMR prior to discharge 5. Rh negative, s/p rhogam 6. Chronic HTN currently on Hydralazine QID 7. Echo completed, f/u official read 8. Internal Medicine on cosult, f/u recommendations 9. Cardiology on consult, f/u recommendations 10. Anticipate discharge tomorrow 11. Plan d/w attending Gracy Calderon DO PGY-1 patient examined.agree with resident exam, assessment and plan Vital Signs Provider PP: Reviewed
[2017-06-19] MEDS: Oxycodone/Acetaminophen 5/325 mg Tab PO PRN (07:40)
--- NOTE | 2017-06-19 08:25 | OBPPN ---
Datetime: 06/19/2017 08:21 PP Pain Prov: Within normal limits PP Nausea Prov: Present PP Flatus Prov: No PP Abdomen/Uterus Prov: Normal PP Lochia Prov: Normal PP Extremities Prov: Normal PP Comments Phys Exam Prov: fudus below umblicus mildily distended, incision clean and dry ext no edema,no calf ten PP Impression Prov: Normal progression PP Progress Note Prov: pt was seen at bed side,pain undeer control, c/o vomiting x 4 since last nigh t, no flatus. pt states did not eat much. pod#3 s/p c/s with cvomiting npo/ivf labs zofran cont pain altaf cont post op care encoutrage ambulation Vital Signs Provider PP: Reviewed; Within Normal Limits
--- NOTE | 2017-06-19 09:32 | CP.PCM.PN ---
<Mami Byrnes - Last Filed: 06/19/17 15:37> Subjective - Date & Time of Evaluation Date of Evaluation: 06/19/17 Time of Evaluation: 09:29 - Subjective Subjective: Patient seen and examined at bedside. Pt BP this morning is 138/76. Patient resting comfortably in bed with at side. Patient is feeling tired today 2/2 to not sleeping well last night. Patient having some abdominal tenderness and distention. Patient had a BM since last visit but no flatus. Patient admits to vomiting x4 overnight which she thinks is from drinking the prune juice because she doesnt like it. Pt denies blood in vomit and says her vomit looked like the prune juice she was drinking. Patient says she is urinating appropriately. Patient says she no longer has the cough and is using incentive spirometer. Patient denies HANNAH, dizziness, changes in vision, ringing in ears, CP , SOB, N, V. Objective - Vital Signs/Intake and Output Vital Signs (last 24 hours): Temp Pulse Resp BP Pulse Ox 98.9 F 100 H 20 138/76 98 06/19/17 00:00 06/19/17 00:00 06/19/17 00:00 06/19/17 00:00 06/18/17 14:49 - Medications Medications: Current Medications Docusate Sodium (Colace) 100 mg PO BID [facility] Last Admin: 06/18/17 17:51 Dose: 100 mg Ferrous Sulfate (Feosol) 325 mg PO BID [facility] Last Admin: 06/18/17 17:52 Dose: 325 mg Hydralazine HCl (Apresoline) 50 mg PO TID [facility] Last Admin: 06/18/17 17:51 Dose: 50 mg Lactated Ringer's (Lactated Ringer's) 1,000 mls @ 100 mls/hr IV .Q10H [facility] Oxytocin (Pitocin 20 Units In Lr) 1,000 mls @ 125 mls/hr IV .Q8H [facility] PRN Reason: Protocol Last Admin: 06/16/17 20:56 Dose: 125 mls/hr Ibuprofen (Motrin Tab) 600 mg PO Q4 PRN PRN Reason: Pain, Mild (1-3) Metoclopramide HCl (Reglan) 10 mg IVP ONCE PRN PRN Reason: Nausea/Vomiting, SECOND LINE Ondansetron HCl (Zofran Inj) 4 mg IVP ONCE PRN PRN Reason: Nausea/Vomiting Ondansetron HCl (Zofran Inj) 4 mg IVP Q4H PRN PRN Reason: Nausea/Vomiting Oxycodone/Acetaminophen (Percocet 5/325 Mg Tab) 1 tab PO Q4H PRN PRN Reason: Pain, moderate (4-7) Stop: 06/19/17 22:15 Last Admin: 06/17/17 21:56 Dose: 1 tab Oxycodone/Acetaminophen (Percocet 5/325 Mg Tab) 2 tab PO Q4H PRN PRN Reason: Pain, severe (8-10) Stop: 06/19/17 22:15 Last Admin: 06/19/17 07:40 Dose: 2 tab Multivit/Folic Acid/Iron () 1 tab PO DAILY [facility] Last Admin: 06/18/17 10:59 Dose: 1 tab Sennosides (Senokot Tab) 17.2 mg PO HS [facility] Last Admin: 06/18/17 21:39 Dose: 17.2 mg Simethicone (Mylicon Chew Tab) 80 mg PO QID [facility] Last Admin: 06/18/17 21:39 Dose: 80 mg - Labs Labs: 06/17/17 07:34 06/17/17 07:34 PT 10.8 SECONDS (9.7-12.2) 06/16/17 19:33 INR 1.0 06/16/17 19:33 APTT 24 SECONDS (21-34) 06/16/17 19:33 - Constitutional Appears: Non-toxic - Head Exam Head Exam: NORMAL INSPECTION - Eye Exam Eye Exam: EOMI - ENT Exam ENT Exam: Mucous Membranes Moist - Respiratory Exam Respiratory Exam: Clear to Ausculation Bilateral, NORMAL BREATHING PATTERN. absent: Accessory Muscle Use, Respiratory Distress - Cardiovascular Exam Cardiovascular Exam: Murmur (+LUKAS) - GI/Abdominal Exam GI & Abdominal Exam: Distended, Soft, Tenderness (to palpation diffusely ), Normal Bowel Sounds. absent: Rigid Additional comments: bandage over site c/d/i. - Extremities Exam Extremities Exam: Normal Inspection - Neurological Exam Neurological Exam: Alert, Awake - Psychiatric Exam Psychiatric exam: Normal Affect, Normal Mood - Skin Skin Exam: Dry, Intact, Warm Assessment and Plan - Assessment and Plan (Free Text) Assessment: Chronic Hypertension * Cozaar stopped given side effect profile during ; Patient is status post delivery with plans for and advised to stop medication if she is planning to breast fed given adverse implications to the ; patient agreeable to this plan * Hydralazine 25 mg PO QID changed to 50 mg PO TID for better control of BP; hold SBP<100, hold if HR<60 * Monitor blood pressure s/p 06/16 * management as per OBGYN Abdominal pain/Post op ileus * NPO * IVF * F/U CBC, CMP * WBC: 9.8 (06/19) * BP: 147/94 likely elevated 2/2 abdominal pain <Constance Ahumada V - Last Filed: 06/20/17 06:30> Objective - Vital Signs/Intake and Output Vital Signs (last 24 hours): Temp Pulse Resp BP Pulse Ox 97.1 F L 96 H 20 145/83 98 06/20/17 00:00 06/20/17 00:00 06/20/17 00:00 06/20/17 00:00 06/19/17 16:00 - Medications Medications: Current Medications Docusate Sodium (Colace) 100 mg PO BID [facility] Last Admin: 06/19/17 17:36 Dose: 100 mg Ferrous Sulfate (Feosol) 325 mg PO BID [facility] Last Admin: 06/19/17 17:36 Dose: 325 mg Hydralazine HCl (Apresoline) 50 mg PO TID [facility] Last Admin: 06/19/17 17:36 Dose: 50 mg Lactated Ringer's (Lactated Ringer's) 1,000 mls @ 100 mls/hr IV .Q10H [facility] Oxytocin (Pitocin 20 Units In Lr) 1,000 mls @ 125 mls/hr IV .Q8H [facility] PRN Reason: Protocol Last Admin: 06/16/17 20:56 Dose: 125 mls/hr Ibuprofen (Motrin Tab) 600 mg PO Q4 PRN PRN Reason: Pain, Mild (1-3) Last Admin: 06/19/17 23:18 Dose: 600 mg Metoclopramide HCl (Reglan) 10 mg IVP ONCE PRN PRN Reason: Nausea/Vomiting, SECOND LINE Ondansetron HCl (Zofran Inj) 4 mg IVP ONCE PRN PRN Reason: Nausea/Vomiting Ondansetron HCl (Zofran Inj) 4 mg IVP Q4H PRN PRN Reason: Nausea/Vomiting Potassium Chloride (K-Dur 20 Meq Er Tab) 20 meq PO DAILY [facility] Last Admin: 06/19/17 14:51 Dose: 20 meq Multivit/Folic Acid/Iron () 1 tab PO DAILY [facility] Last Admin: 06/19/17 09:45 Dose: Not Given Sennosides (Senokot Tab) 17.2 mg PO HS [facility] Last Admin: 06/19/17 22:27 Dose: 17.2 mg Simethicone (Mylicon Chew Tab) 80 mg PO QID [facility] Last Admin: 06/19/17 22:23 Dose: 80 mg - Labs Labs: 06/19/17 11:36 06/19/17 11:36 PT 10.8 SECONDS (9.7-12.2) 06/16/17 19:33 INR 1.0 06/16/17 19:33 APTT 24 SECONDS (21-34) 06/16/17 19:33 Attending/Attestation - Attestation I have personally seen and examined this patient.: Yes I have fully participated in the care of the patient.: Yes I have reviewed all pertinent clinical information, including history, physical exam and plan: Yes Notes (Text): This is late computer entry for 06/19/17. Patient seen, examined, and case discussed with day-time resident this morning Medicine was consulted for blood pressure management with patient with history of chronic hypertension; s/p , who did not receive care during time of . Patient's blood pressure changed to Hydralazine 50mg PO TID for blood pressure control. Overnight, patient reports she has episode of vomitting, and reports she has not had flatus, but had a bowel movement following ducolax. Patient reports abdominal pain and distension. I spoke with Dr. Lazar, ob-event security officer hospitalist for the day, in the morning given patient appears more distended compared to yesterday, and has not flatus or bowel movement w/o laxative; who is aware and will address. Will keep blood pressure medication as is; given patient is having abdominal pain and influencing blood pressure Assessment/Plan 1) Chronic Hypertension * Cozaar stopped given side effect profile during ; Patient is status post delivery with plans for and advised to stop medication if she is planning to breast fed given adverse implications to the ; patient agreeable to this plan * Hydralazine 50 mg PO TID with holding parameters * Monitor blood pressure * Completed echocardiogram and official report available 2) s/p 06/16 * management as per OBGYN/primary * Discussed findings with OBGYN this morning; monitor for bowel movement
[2017-06-19] MEDS: Simethicone 80 mg Chewtab PO SCH ×4 (09:41→22:23)
[2017-06-19] MEDS: Prenatal Multivit/Folic Acid/Iron Tab PO SCH (09:45)
[2017-06-19] MEDS ORDERED: Measles, Mumps, and Rubella 0.5 ML VIAL SC ONE (10:00)
--- NOTE | 2017-06-19 11:28 | CP.PCM.PN ---
Subjective - Date & Time of Evaluation Date of Evaluation: 06/19/17 Time of Evaluation: 11:24 - Subjective Subjective: Complains of abdominal pain and nausea. Objective - Vital Signs/Intake and Output Vital Signs (last 24 hours): Temp Pulse Resp BP Pulse Ox 98.9 F 100 H 20 138/76 98 06/19/17 00:00 06/19/17 00:00 06/19/17 00:00 06/19/17 00:00 06/18/17 14:49 - Medications Medications: Current Medications Docusate Sodium (Colace) 100 mg PO BID [facility] Last Admin: 06/19/17 09:43 Dose: Not Given Ferrous Sulfate (Feosol) 325 mg PO BID [facility] Last Admin: 06/19/17 09:43 Dose: Not Given Hydralazine HCl (Apresoline) 50 mg PO TID [facility] Last Admin: 06/19/17 09:40 Dose: 50 mg Lactated Ringer's (Lactated Ringer's) 1,000 mls @ 100 mls/hr IV .Q10H [facility] Oxytocin (Pitocin 20 Units In Lr) 1,000 mls @ 125 mls/hr IV .Q8H [facility] PRN Reason: Protocol Last Admin: 06/16/17 20:56 Dose: 125 mls/hr Ibuprofen (Motrin Tab) 600 mg PO Q4 PRN PRN Reason: Pain, Mild (1-3) Metoclopramide HCl (Reglan) 10 mg IVP ONCE PRN PRN Reason: Nausea/Vomiting, SECOND LINE Ondansetron HCl (Zofran Inj) 4 mg IVP ONCE PRN PRN Reason: Nausea/Vomiting Ondansetron HCl (Zofran Inj) 4 mg IVP Q4H PRN PRN Reason: Nausea/Vomiting Oxycodone/Acetaminophen (Percocet 5/325 Mg Tab) 1 tab PO Q4H PRN PRN Reason: Pain, moderate (4-7) Stop: 06/19/17 22:15 Last Admin: 06/17/17 21:56 Dose: 1 tab Oxycodone/Acetaminophen (Percocet 5/325 Mg Tab) 2 tab PO Q4H PRN PRN Reason: Pain, severe (8-10) Stop: 06/19/17 22:15 Last Admin: 06/19/17 07:40 Dose: 2 tab Multivit/Folic Acid/Iron () 1 tab PO DAILY [facility] Last Admin: 06/19/17 09:45 Dose: Not Given Sennosides (Senokot Tab) 17.2 mg PO HS [facility] Last Admin: 06/18/17 21:39 Dose: 17.2 mg Simethicone (Mylicon Chew Tab) 80 mg PO QID [facility] Last Admin: 06/19/17 09:41 Dose: 80 mg - Labs Labs: 06/17/17 07:34 06/17/17 07:34 PT 10.8 SECONDS (9.7-12.2) 06/16/17 19:33 INR 1.0 06/16/17 19:33 APTT 24 SECONDS (21-34) 06/16/17 19:33 - Head Exam Head Exam: NORMOCEPHALIC - Neck Exam Neck Exam: Normal Inspection - Respiratory Exam Respiratory Exam: NORMAL BREATHING PATTERN - Cardiovascular Exam Cardiovascular Exam: REGULAR RHYTHM - Extremities Exam Extremities Exam: Normal Inspection - Neurological Exam Neurological Exam: Alert, Oriented x3 Assessment and Plan (1) Hypertension Assessment & Plan: BP is controlled, but higher than yesterday, may be secondary to abdominal pain. Monitor BP, treat underying cause of abdominal pain. If needed may increase hydralazine or add beta blockers if no contraindications. Status: Acute
[2017-06-19 11:51] LABS: BASO % 0.2 % (0.0-2.0); EOS % 0.3 % (0.0-4.0); LYMPH # 1.4 K/uL (1.0-4.3); LYMPH % 14.3 % (20.0-40.0); MEAN CELL VOLUME 79.2 fL (81.0-99.0); MEAN CORPUSCULAR HEMOGLOBIN 26.3 pg (27.0-31.0); MEAN CORPUSCULAR HGB CONC 33.3 g/dL (33.0-37.0); MEAN PLATELET VOLUME 8.1 fL (7.2-11.7); MONO % 10.6 % (0.0-10.0); NRBC % 0.1 % (0.0-2.0); RED CELL DISTRIBUTION WIDTH 16.2 % (11.5-14.5); WHITE BLOOD COUNT 9.8 K/uL (4.8-10.8)
[2017-06-19 12:04] LABS: CHLORIDE 103 mmol/L (98-107); POTASSIUM 3.5 mmol/L (3.6-5.2); SODIUM 138 mmol/L (132-148)
[2017-06-19 12:06] LABS: GFR AFRICAN-AMERICAN > 60
[2017-06-19 12:07] LABS: ALB/GLOB RATIO 0.9 (1.0-2.1); ALKALINE PHOSPHATASE 58 U/L (38-126); ALT/SGPT 22 U/L (9-52); AST/SGOT 19 U/L (14-36); BLOOD UREA NITROGEN 16 mg/dL (7-17); CALCIUM 8.9 mg/dl (8.6-10.4); CARBON DIOXIDE 19 mmol/L (22-30); GLUCOSE,RANDOM 133 mg/dL (65-105); TOTAL PROTEIN 6.5 g/dL (6.3-8.3)
[2017-06-19] MEDS: Potassium Chloride 20 mEq ER Tab PO SCH (14:51)
--- NOTE | 2017-06-19 19:13 | CARD ---
APPROVED REPORT EXAM: Two-dimensional and M-mode echocardiogram with Doppler and color Doppler. Other Information Quality : GoodRhythm : RISK FACTORS Hypertension 2D DIMENSIONS IVSd1.1 (0.7-1.1cm)LVDd5.7 (3.9-5.9cm) PWd1.1 (0.7-1.1cm)LVDs4.2 (2.5-4.0cm) FS (%) 27.0 %LVEF (%)52.0 (>50%) M-Mode DIMENSIONS Left Atrium (MM)4.07 (2.5-4.0cm)Aortic Root3.12 (2.2-3.7cm) Aortic Cusp Exc.2.19 (1.5-2.0cm) Mitral Valve MV E Qloetztm314.6cm/sMV A Iwujgord72.2cm/sE/A ratio1.3 TDI E/Lateral E'0.0E/Medial E'0.0 Tricuspid Valve TR Peak [id number]/sTR Peak Gr.[id number] LEFT VENTRICLE The left ventricle is normal size. The left ventricular function is normal. The left ventricular ejection fraction is within the normal range. The left ventricular diastolic function is normal. RIGHT VENTRICLE The right ventricle is normal size. The right ventricular systolic function is normal. ATRIA The left atrium size is normal. The right atrium size is normal. The interatrial septum is intact with no evidence for an atrial septal defect. AORTIC VALVE The aortic valve is normal in structure. No aortic regurgitation is present. There is no aortic valvular stenosis. MITRAL VALVE The mitral valve is normal in structure. There is no mitral valve stenosis. Mitral regurgitation is trace. TRICUSPID VALVE The tricuspid valve is normal in structure. There is mild tricuspid regurgitation. There is no tricuspid valve stenosis. GREAT VESSELS The aortic root is normal in size. <Conclusion> The left ventricular function is normal. The left ventricular ejection fraction is within the normal range. The right ventricular systolic function is normal. There is no tricuspid valve stenosis. The aortic root is normal in size.
[2017-06-20 07:14] LABS: BASO % 0.2 % (0.0-2.0); EOS # 0.1 K/uL (0.0-0.7); HEMATOCRIT 26.4 % (34.0-47.0); LYMPH # 0.8 K/uL (1.0-4.3); LYMPH % 13.5 % (20.0-40.0); MEAN CELL VOLUME 79.6 fL (81.0-99.0); MEAN CORPUSCULAR HEMOGLOBIN 26.3 pg (27.0-31.0); MEAN CORPUSCULAR HGB CONC 33.1 g/dL (33.0-37.0); MEAN PLATELET VOLUME 7.8 fL (7.2-11.7); MONO # 0.8 K/uL (0.0-0.8); MONO % 13.7 % (0.0-10.0); NRBC % 0.1 % (0.0-2.0); RED CELL DISTRIBUTION WIDTH 15.4 % (11.5-14.5); WHITE BLOOD COUNT 5.9 K/uL (4.8-10.8)
[2017-06-20 07:27] LABS: CHLORIDE 101 mmol/L (98-107); POTASSIUM 3.5 mmol/L (3.6-5.2); SODIUM 135 mmol/L (132-148)
[2017-06-20 07:29] LABS: GFR AFRICAN-AMERICAN > 60
[2017-06-20 07:30] LABS: ALB/GLOB RATIO 0.9 (1.0-2.1); ALKALINE PHOSPHATASE 52 U/L (38-126); ALT/SGPT 29 U/L (9-52); AST/SGOT 25 U/L (14-36); BLOOD UREA NITROGEN 18 mg/dL (7-17); CARBON DIOXIDE 20 mmol/L (22-30); GLUCOSE,RANDOM 100 mg/dL (65-105); PHOSPHOROUS 3.9 mg/dL (2.5-4.5); TOTAL PROTEIN 5.9 g/dL (6.3-8.3)
[2017-06-20 07:31] LABS: CALCIUM 8.4 mg/dl (8.6-10.4); MAGNESIUM 1.4 mg/dL (1.6-2.3)
--- NOTE | 2017-06-20 07:48 | CP.PCM.PN ---
<Mami Byrnes - Last Filed: 06/20/17 13:31> Subjective - Date & Time of Evaluation Date of Evaluation: 06/20/17 Time of Evaluation: 07:45 - Subjective Subjective: Patient seen and examined at bedside. Patient resting comfortably in bed. Patient is feeling tired today. Patient says her stomach pain is much better today after going for a walk. Pt says she had a BM and is passing flatus. Patient denies HANNAH, dizziness, changes in vision, ringing in ears, cough, CP, SOB , N, V. Objective - Vital Signs/Intake and Output Vital Signs (last 24 hours): Temp Pulse Resp BP Pulse Ox 97.1 F L 96 H 20 145/83 98 06/20/17 00:00 06/20/17 00:00 06/20/17 00:00 06/20/17 00:00 06/19/17 16:00 - Medications Medications: Current Medications Docusate Sodium (Colace) 100 mg PO BID [facility] Last Admin: 06/19/17 17:36 Dose: 100 mg Ferrous Sulfate (Feosol) 325 mg PO BID [facility] Last Admin: 06/19/17 17:36 Dose: 325 mg Hydralazine HCl (Apresoline) 50 mg PO TID [facility] Last Admin: 06/19/17 17:36 Dose: 50 mg Lactated Ringer's (Lactated Ringer's) 1,000 mls @ 100 mls/hr IV .Q10H [facility] Oxytocin (Pitocin 20 Units In Lr) 1,000 mls @ 125 mls/hr IV .Q8H [facility] PRN Reason: Protocol Last Admin: 06/16/17 20:56 Dose: 125 mls/hr Ibuprofen (Motrin Tab) 600 mg PO Q4 PRN PRN Reason: Pain, Mild (1-3) Last Admin: 06/19/17 23:18 Dose: 600 mg Metoclopramide HCl (Reglan) 10 mg IVP ONCE PRN PRN Reason: Nausea/Vomiting, SECOND LINE Ondansetron HCl (Zofran Inj) 4 mg IVP ONCE PRN PRN Reason: Nausea/Vomiting Ondansetron HCl (Zofran Inj) 4 mg IVP Q4H PRN PRN Reason: Nausea/Vomiting Potassium Chloride (K-Dur 20 Meq Er Tab) 20 meq PO DAILY [facility] Last Admin: 06/19/17 14:51 Dose: 20 meq Multivit/Folic Acid/Iron () 1 tab PO DAILY [facility] Last Admin: 06/19/17 09:45 Dose: Not Given Sennosides (Senokot Tab) 17.2 mg PO HS [facility] Last Admin: 06/19/17 22:27 Dose: 17.2 mg Simethicone (Mylicon Chew Tab) 80 mg PO QID [facility] Last Admin: 06/19/17 22:23 Dose: 80 mg - Labs Labs: 06/20/17 07:00 06/20/17 07:00 PT 10.8 SECONDS (9.7-12.2) 06/16/17 19:33 INR 1.0 06/16/17 19:33 APTT 24 SECONDS (21-34) 06/16/17 19:33 - Constitutional Appears: Non-toxic, No Acute Distress - Head Exam Head Exam: NORMAL INSPECTION - Eye Exam Eye Exam: EOMI - ENT Exam ENT Exam: Mucous Membranes Moist - Respiratory Exam Respiratory Exam: Clear to Ausculation Bilateral, NORMAL BREATHING PATTERN - Cardiovascular Exam Cardiovascular Exam: REGULAR RHYTHM, +S1, +S2, Murmur (LUKAS) - GI/Abdominal Exam GI & Abdominal Exam: Distended, Soft, Hypoactive Bowel Sounds. absent: Tenderness - Extremities Exam Extremities Exam: Normal Inspection - Neurological Exam Neurological Exam: Alert, Awake, Oriented x3 - Psychiatric Exam Psychiatric exam: Normal Affect, Normal Mood - Skin Skin Exam: Dry, Intact, Warm Assessment and Plan - Assessment and Plan (Free Text) Assessment: Chronic Hypertension * Cozaar stopped given side effect profile during ; Patient is status post delivery with plans for and advised to stop medication if she is planning to breast fed given adverse implications to the ; patient agreeable to this plan * Hydralazine 25 mg PO QID changed to 50 mg PO TID for better control of BP; hold SBP<100, hold if HR<60 * Monitor blood pressure s/p 06/16 * management as per OBGYN Abdominal pain/Post op ileus * resolved Disposition: patient medically stable for discharge from an IM standpoint. Patient is to continue Hydralazine 50 mg PO TID. Patient to F/U with PMD in 1 week to discuss BP control. Pt is to let PMD know her plans for brest feeding so that appropriate medications may be given for BP control. <Constance Ahumada V - Last Filed: 06/20/17 21:42> Objective - Vital Signs/Intake and Output Vital Signs (last 24 hours): Temp Pulse Resp BP Pulse Ox 98.6 F 88 18 125/70 98 06/20/17 16:00 06/20/17 16:00 06/20/17 16:00 06/20/17 16:00 06/20/17 16:00 - Labs Labs: 06/20/17 11:44 06/20/17 07:00 PT 10.8 SECONDS (9.7-12.2) 06/16/17 19:33 INR 1.0 06/16/17 19:33 APTT 24 SECONDS (21-34) 06/16/17 19:33 Attending/Attestation - Attestation I have personally seen and examined this patient.: Yes I have fully participated in the care of the patient.: Yes I have reviewed all pertinent clinical information, including history, physical exam and plan: Yes Notes (Text): Patient seen, examined, and case discussed with day-time resident this morning Medicine was consulted for blood pressure management with patient with history of chronic hypertension; s/p , who did not receive care during time of . Patient's blood pressure medication is Hydralazine 50mg PO TID for blood pressure control. Patient reports she is feeling much better compared to yesterday. Patient reports she had flatus and having good bowel movements. Patient denies nausea, denies vomitting, denies headache, denies abdominal pain, or other acute complaints. Patient advised to follow-up with PMD for blood pressure check and to monitor while on this medication. I was spoke with her at length regarding making dietary modifications, low salt diet to help control her salt intake and manage her blood pressure. I also advised patient to let her PMD know she is currently if they plan to change the medication. Patient verbalized understanding and agrees Patient is medically stable from our standpoint in regards to chronic hypertension. Assessment/Plan 1) Chronic Hypertension * Cozaar stopped given side effect profile during ; Patient is status post delivery with plans for and advised to stop medication if she is planning to breast fed given adverse implications to the ; patient agreeable to this plan * Hydralazine 50 mg PO TID with holding parameters * Monitor blood pressure * Completed echocardiogram and official report available 2) s/p 06/16 * management as per OBGYN/primary * Discussed findings with OBGYN this morning; passing stool and flatus.
[2017-06-20 08:02] VITALS: RESP 18
[2017-06-20] MEDS ORDERED: Measles, Mumps, and Rubella 0.5 ML VIAL SC ONE (10:00)
[2017-06-20] MEDS ORDERED: MedroxyPROGESTERone Depo 150 mg/mL inj IM ONE ×2 (10:15→12:00)
[2017-06-20] MEDS: Potassium Chloride 20 mEq ER Tab PO SCH (10:50)
[2017-06-20] MEDS: Simethicone 80 mg Chewtab PO SCH ×2 (10:51→14:06)
[2017-06-20] MEDS: Prenatal Multivit/Folic Acid/Iron Tab PO SCH (10:51)
--- NOTE | 2017-06-20 11:49 | OBPPN ---
Datetime: 06/20/2017 11:03 PP Pain Prov: Within normal limits PP Nausea Prov: Denies PP Flatus Prov: Yes PP BM Prov: Yes PP Impression Prov: Normal progression PP Plan Prov: Discharge PP Progress Note Prov: Patient seen and examined at bedside. Per nursing, no acute events overnight. Patient is doing well, pain is controlled. Patient is ambulating and tolerating clears. Lochia is mo derate. Urinating without difficulty. Reports passing flatus and having BMs. Breast and bottle feedin g. Denies nausea, vomiting, headache, dizziness, F/C, chest pain, palpitations, sob, urinary symptoms . VS: 139/69 89 99.0 Gen: AAOx3, NAD Breast; non engorged b/l CV: RRR Lungs: CTA B/L Abd: soft, non-distended, NT/ND, +BS incision c/d/i with mini, fundus firm below umbilicus, min la lochia, non tender Ext: B/L LE edema, no calf tenderness Labs: 10.4>10.4/31.0<219 11.4>9.3/28.3<197 9.8>12.0/36.0<332 5.9>8.8/26.4<260 A negative Rubella equivocal A/P: 36 yo at 40w0d s/p RLTCD POD#4 with no care, chornic htn 1. Stable, afebrile 2. Pain control percocet and motrin prn 3. Encourage ambulation and hydration/ encourage ISS use 4. Will advance to regular diet 5. F/U repeat CBC 6. Continue routine post care 7. Chronic HTN on Hydralazine 50mg TID 8. Medicine on consult f/u recommendations 9. Patient cleared by ASHELY 11. Rubella Equivocal- Will give MMR prior to discharge 12. Rh negative- s/p rhogam 13. Hypokalemia - repleting potassium 14. Anticipate D/C home today if repeat hgb is stable - pelvic rest x 6 weeks, f/u with clinic in 1 week for staple removal, percocet and motrin prn pain 15. Plan d/w attending Gracy Calderon DO PGY-1 pt seen adn examined with residnet, pt is asympoamtic pt reqeustin dsicharge howm and depo contracption importace of follow up for staple removal, routine care adn for chornic htn d/w patietn social work cleared pt for discharge plan f/u [facility] mmr prior to discharge depo prior to dsicharge rtc witiin 1 week for staple removal precatuisn givne; if pain, bleeding, more than 2 pads/ hour, fever, chills, sizures, headaches, di zzyness, CP, SOB, pain, swelling in legs, any concerns go to [facility] Vital Signs Provider PP: Reviewed
[2017-06-20 11:50] LABS: BASO % 0.1 % (0.0-2.0); EOS # 0.2 K/uL (0.0-0.7); EOS % 2.6 % (0.0-4.0); HEMATOCRIT 27.1 % (34.0-47.0); LYMPH # 1.1 K/uL (1.0-4.3); LYMPH % 17.3 % (20.0-40.0); MEAN CELL VOLUME 79.7 fL (81.0-99.0); MEAN CORPUSCULAR HEMOGLOBIN 26.4 pg (27.0-31.0); MEAN CORPUSCULAR HGB CONC 33.1 g/dL (33.0-37.0); MEAN PLATELET VOLUME 7.9 fL (7.2-11.7); MONO # 0.8 K/uL (0.0-0.8); MONO % 13.6 % (0.0-10.0); RED CELL DISTRIBUTION WIDTH 15.9 % (11.5-14.5); WHITE BLOOD COUNT 6.2 K/uL (4.8-10.8)
--- NOTE | 2017-06-20 11:51 | OBDCSUM ---
Datetime: 06/20/2017 11:49 Discharged to, Provider: Home Follow up at, Provider: Clinic Disch Instr Activity: Normal activity Disch Instr Diet: Regular Discharge Instructions, Provider: Routine instructions given Discharge Diagnosis, Provider: Term Delivered Discharge Time: 06/20/2017 11:49 Follow up in weeks, Provider: 1 week Disch Referrals: None Contraception discussed, Prov: Yes Disch Activity Restrictions: No exercising; No sexual activity; Nothing in vagina - [place], rupert gatica Discharge Comment, Provider: dipikatcasie molina; if pain, bleeding, more than 2 pads/ hour, fever, chi lls, sizures, headaches, dizzyness, CP, SOB, pain, swelling in legs, any concerns go to [facility] Discharge Diagnosis Prov Other: no care chronic htn Contraception after Delivery: Depo-Provera
--- NOTE | 2017-06-20 14:54 | CP.PCM.PN ---
Subjective - Date & Time of Evaluation Date of Evaluation: 06/20/17 Time of Evaluation: 14:53 - Subjective Subjective: No new complaints. Sitting in chair. Ready to go home. Objective - Vital Signs/Intake and Output Vital Signs (last 24 hours): Temp Pulse Resp BP Pulse Ox 99.0 F 89 18 139/69 98 06/20/17 08:00 06/20/17 08:00 06/20/17 08:00 06/20/17 08:00 06/20/17 08:00 - Medications Medications: Current Medications Docusate Sodium (Colace) 100 mg PO BID [facility] Last Admin: 06/20/17 10:50 Dose: 100 mg Ferrous Sulfate (Feosol) 325 mg PO BID [facility] Last Admin: 06/20/17 10:50 Dose: 325 mg Hydralazine HCl (Apresoline) 50 mg PO TID [facility] Last Admin: 06/20/17 14:06 Dose: 50 mg Lactated Ringer's (Lactated Ringer's) 1,000 mls @ 100 mls/hr IV .Q10H [facility] Oxytocin (Pitocin 20 Units In Lr) 1,000 mls @ 125 mls/hr IV .Q8H [facility] PRN Reason: Protocol Last Admin: 06/16/17 20:56 Dose: 125 mls/hr Ibuprofen (Motrin Tab) 600 mg PO Q4 PRN PRN Reason: Pain, Mild (1-3) Last Admin: 06/20/17 10:52 Dose: 600 mg Metoclopramide HCl (Reglan) 10 mg IVP ONCE PRN PRN Reason: Nausea/Vomiting, SECOND LINE Ondansetron HCl (Zofran Inj) 4 mg IVP ONCE PRN PRN Reason: Nausea/Vomiting Ondansetron HCl (Zofran Inj) 4 mg IVP Q4H PRN PRN Reason: Nausea/Vomiting Potassium Chloride (K-Dur 20 Meq Er Tab) 20 meq PO DAILY [facility] Last Admin: 06/20/17 10:50 Dose: 20 meq Multivit/Folic Acid/Iron () 1 tab PO DAILY [facility] Last Admin: 06/20/17 10:51 Dose: 1 tab Sennosides (Senokot Tab) 17.2 mg PO HS [facility] Last Admin: 06/19/17 22:27 Dose: 17.2 mg Simethicone (Mylicon Chew Tab) 80 mg PO QID [facility] Last Admin: 06/20/17 14:06 Dose: 80 mg - Labs Labs: 06/20/17 11:44 06/20/17 07:00 PT 10.8 SECONDS (9.7-12.2) 06/16/17 19:33 INR 1.0 06/16/17 19:33 APTT 24 SECONDS (21-34) 06/16/17 19:33 Assessment and Plan (1) Hypertension Assessment & Plan: Continue current medicine. Advised for compliance. Follow-up as out patient. Status: Acute
[2017-06-20 23:36] VITALS: BP 139/69; PULSE 89; TEMP 99
== END 2017-06-20 17:30 | disposition home or self-care (01) | DRG 650 ==
LOC: C.EROB 17:03 → C.4D 18:01 → C.4M 06-17 00:44
PROVIDERS: ADMIT Obstetrics & Gynecology; ATTEND Obstetrics & Gynecology
PROC: 10D00Z1 Extraction of Products of Conception, Low, Open Approach (ICD-10-PCS; principal; 2017-06-16)
DX: O10.92 Unspecified pre-existing hypertension complicating childbirth (principal); E87.6 Hypokalemia; Z68.41 Body mass index [BMI] 40.0-44.9, adult; Z3A.40 40 weeks gestation of pregnancy; O99.214 Obesity complicating childbirth; E66.01 Morbid (severe) obesity due to excess calories; Z37.0 Single live birth